=== PATIENT | male | born 1970 | race Caucasian/White ===

== ENCOUNTER 2019-03-07 15:30 | Outpatient (RCR) | payer OTHER | END 2019-05-08 | disposition home or self-care (01) | LOC: WSPT | DX: M54.41 Lumbago with sciatica, right side (principal); R29.898 Other symptoms and signs involving the musculoskeletal system ==

== ENCOUNTER → 2019-08-13 | Outpatient (CLI) | payer OTHER | LOC: COL.LAB 14:10 | DX: Z11.59 Encounter for screening for other viral diseases (principal) ==

== ENCOUNTER → 2021-02-02 | Outpatient (CLI) | payer OTHER | LOC: MHCPAIN 13:40 | DX: M47.817 Spondylosis without myelopathy or radiculopathy, lumbosacral region (principal); M54.16 Radiculopathy, lumbar region; M53.3 Sacrococcygeal disorders, not elsewhere classified | CPT/HCPCS: G0463 ==

== ENCOUNTER → 2021-02-11 | Outpatient (CLI) | payer OTHER | LOC: MHCPAIN 08:47 | DX: M47.816 Spondylosis without myelopathy or radiculopathy, lumbar region (principal); M53.3 Sacrococcygeal disorders, not elsewhere classified; M54.16 Radiculopathy, lumbar region | CPT/HCPCS: J1100; Q9967 ==

== ENCOUNTER → 2021-03-02 | Outpatient (CLI) | payer OTHER | LOC: MHCPAIN 12:48 | DX: M47.817 Spondylosis without myelopathy or radiculopathy, lumbosacral region (principal); M53.3 Sacrococcygeal disorders, not elsewhere classified; M54.16 Radiculopathy, lumbar region | CPT/HCPCS: G0463 ==

== ENCOUNTER 2021-03-10 13:00 | Outpatient (RCR) | payer OTHER | END 2021-03-28 | disposition home or self-care (01) | LOC: PT.GENESIS | DX: M43.16 Spondylolisthesis, lumbar region (principal) ==

== ENCOUNTER → 2021-03-11 | Outpatient (CLI) | payer OTHER | LOC: MHCPAIN 11:57 | DX: M47.816 Spondylosis without myelopathy or radiculopathy, lumbar region (principal); M54.16 Radiculopathy, lumbar region; M53.3 Sacrococcygeal disorders, not elsewhere classified | CPT/HCPCS: J1100; Q9967 ==

== ENCOUNTER → 2021-03-24 | Outpatient (CLI) | payer OTHER | LOC: MHCPAIN 13:06 | DX: M47.817 Spondylosis without myelopathy or radiculopathy, lumbosacral region (principal); M53.3 Sacrococcygeal disorders, not elsewhere classified; M54.16 Radiculopathy, lumbar region | CPT/HCPCS: G0463 ==

== ENCOUNTER → 2021-04-07 | Outpatient (CLI) | payer OTHER | LOC: MHCPAIN 09:53 | DX: M47.816 Spondylosis without myelopathy or radiculopathy, lumbar region (principal); M53.3 Sacrococcygeal disorders, not elsewhere classified; M54.16 Radiculopathy, lumbar region | CPT/HCPCS: J1100; Q9967 ==

== ENCOUNTER → 2021-05-10 | Outpatient (CLI) | payer OTHER | LOC: MHCPAIN 13:25 | DX: M47.896 Other spondylosis, lumbar region (principal); M53.3 Sacrococcygeal disorders, not elsewhere classified; M54.16 Radiculopathy, lumbar region | CPT/HCPCS: G0463 ==

== ENCOUNTER → 2021-09-29 | Outpatient (CLI) | payer OTHER | LOC: MHCPAIN 07:51 | DX: M47.817 Spondylosis without myelopathy or radiculopathy, lumbosacral region (principal); M53.3 Sacrococcygeal disorders, not elsewhere classified; M54.16 Radiculopathy, lumbar region; M79.2 Neuralgia and neuritis, unspecified | CPT/HCPCS: G0463 ==

== ENCOUNTER → 2021-10-07 | Outpatient (CLI) | payer OTHER | LOC: MHCPAIN 08:39 | DX: M47.816 Spondylosis without myelopathy or radiculopathy, lumbar region (principal); M43.16 Spondylolisthesis, lumbar region; M54.16 Radiculopathy, lumbar region | CPT/HCPCS: J1100; Q9967 ==

== ENCOUNTER → 2021-10-27 | Outpatient (CLI) | payer OTHER | LOC: MHCPAIN 12:29 | DX: M47.897 Other spondylosis, lumbosacral region (principal); M54.16 Radiculopathy, lumbar region; M53.3 Sacrococcygeal disorders, not elsewhere classified | CPT/HCPCS: G0463 ==

== ENCOUNTER 2021-12-08 14:51 | Outpatient (RCR) | payer OTHER | END 2021-12-26 | disposition home or self-care (01) | LOC: WSOH | DX: S16.1XXA Strain of muscle, fascia and tendon at neck level, initial encounter (principal); T22.011A Burn of unspecified degree of right forearm, initial encounter; M54.50 Low back pain, unspecified; S80.01XA Contusion of right knee, initial encounter; M25.512 Pain in left shoulder; W01.0XXA Fall on same level from slipping, tripping and stumbling without subsequent striking against object, initial encounter; Y99.0 Civilian activity done for income or pay; I10 Essential (primary) hypertension; K58.9 Irritable bowel syndrome, unspecified; F41.9 Anxiety disorder, unspecified; K21.9 Gastro-esophageal reflux disease without esophagitis; Z98.890 Other specified postprocedural states ==

== ENCOUNTER → 2022-07-12 | Outpatient (CLI) | payer OTHER | LOC: COL.RAD 10:40 | DX: I77.810 Thoracic aortic ectasia (principal); Z86.16 Personal history of COVID-19 | CPT/HCPCS: Q9967 ==

== ENCOUNTER → 2022-10-04 | Outpatient (CLI) | payer OTHER | LOC: MHCPAIN 15:10 | DX: M47.896 Other spondylosis, lumbar region (principal); M54.16 Radiculopathy, lumbar region | CPT/HCPCS: G0463 ==

== ENCOUNTER → 2023-06-05 | Outpatient (CLI) | payer OTHER | LOC: COL.RAD 12:43 | DX: M43.17 Spondylolisthesis, lumbosacral region (principal); M48.07 Spinal stenosis, lumbosacral region; M48.061 Spinal stenosis, lumbar region without neurogenic claudication; G62.9 Polyneuropathy, unspecified; M54.16 Radiculopathy, lumbar region ==

== ENCOUNTER 2023-11-21 15:16 | Outpatient (RCR) | payer OTHER | END 2023-11-26 | LOC: WSPT | DX: M54.16 Radiculopathy, lumbar region (principal); M48.07 Spinal stenosis, lumbosacral region; M43.17 Spondylolisthesis, lumbosacral region ==

== ENCOUNTER → 2023-12-07 | Outpatient (CLI) | payer OTHER ==
[~2023-12-07] MED LIST: Iohexol 300 - 10 ML VIAL ONE; Lidocaine PF 2% (20 MG/ML) 2 ML VIAL ONE
== END ==
LOC: MHCPAIN 12:27
DX: M54.16 Radiculopathy, lumbar region (principal); M47.816 Spondylosis without myelopathy or radiculopathy, lumbar region; M48.061 Spinal stenosis, lumbar region without neurogenic claudication; M53.3 Sacrococcygeal disorders, not elsewhere classified
CPT/HCPCS: J1100; Q9967

== ENCOUNTER 2023-12-25 15:45 | Outpatient (RCR) | payer OTHER | END 2023-12-27 | disposition home or self-care (01) | LOC: WSC | DX: G62.9 Polyneuropathy, unspecified (principal); M48.061 Spinal stenosis, lumbar region without neurogenic claudication; M43.17 Spondylolisthesis, lumbosacral region ==

== ENCOUNTER 2024-01-05 15:00 | Outpatient (RCR) | payer OTHER | END 2024-01-27 | disposition home or self-care (01) | LOC: WSPT | DX: M25.511 Pain in right shoulder (principal); M25.512 Pain in left shoulder; M48.061 Spinal stenosis, lumbar region without neurogenic claudication; M43.17 Spondylolisthesis, lumbosacral region; G62.9 Polyneuropathy, unspecified ==

== ENCOUNTER → 2024-01-16 | Outpatient (CLI) | payer OTHER | LOC: MHCPAIN 15:18 | DX: M48.07 Spinal stenosis, lumbosacral region (principal); M47.26 Other spondylosis with radiculopathy, lumbar region; M51.36 Other intervertebral disc degeneration, lumbar region; M53.2X7 Spinal instabilities, lumbosacral region; G60.9 Hereditary and idiopathic neuropathy, unspecified | CPT/HCPCS: G0463 ==

== ENCOUNTER 2024-01-24 14:16 | Outpatient (RCR) | payer OTHER | END 2024-01-27 | disposition home or self-care (01) | LOC: WSPT | DX: M48.061 Spinal stenosis, lumbar region without neurogenic claudication (principal); M43.17 Spondylolisthesis, lumbosacral region; G62.9 Polyneuropathy, unspecified; M25.511 Pain in right shoulder; M25.512 Pain in left shoulder ==